=== PATIENT | male | born 1970 | race Two or more races ===

== ENCOUNTER 2018-05-17 16:37 | Emergency (ER) | payer SELFPAY ==
[~2018-05-17] VITALS: Ht 172.7 cm; Wt 79.4 kg
--- NOTE | 2018-05-17 16:37 | NUR ---
BIB [facility], PT BROUGHT DIRECTLY TO ROOM 2A.
[2018-05-17] MEDS ORDERED: NITROGLYCERIN 0.4 MG/TAB BOTTLE SL ONE (16:42)
[2018-05-17] MEDS ORDERED: ASPIRIN 81 MG TAB.CHEW ONE ×2 (16:43→16:59)
--- NOTE | 2018-05-17 16:43 | NUR ---
STAT EKG DONE, ER PHYSICIAN ATTENDING TO A SANCHO HELM IN ANOTHER DEPARTMENT IN THE HOSPITAL AT THIS TIME.
--- NOTE | 2018-05-17 16:55 | NUR ---
Called [facility] for STEMI transfer as requested by . Spoke with Tenisha, EKG and facesheet faxed to [phone] as requested.
[2018-05-17] MEDS ORDERED: IV NORMAL SALINE 1000 ML BAG IV ONE (17:00)
[2018-05-17] MEDS ORDERED: MORPHINE SULFATE 2 MG/1 ML DISP.SYRIN IV ONE (17:00)
[2018-05-17] MEDS ORDERED: ONDANSETRON 4 MG/2 ML VIAL IV ONE (17:00)
[2018-05-17] MEDS ORDERED: ASPIRIN 325 MG TABLET PO ONE (17:00)
[2018-05-17] MEDS ORDERED: HEPARIN SODIUM,PORCINE 5,000 UNITS/ML VIAL IV ONE (17:00)
--- NOTE | 2018-05-17 17:00 | NUR ---
spoke with (barrel charrer information delivery analyst at [facility]) via telephone and pt has been accepted.
[2018-05-17] MEDS ORDERED: MORPHINE SULFATE 2 MG/1 ML DISP.SYRIN ONE (17:05)
[2018-05-17] MEDS ORDERED: ONDANSETRON 4 MG/2 ML VIAL ONE (17:05)
[2018-05-17] MEDS ORDERED: HEPARIN SODIUM,PORCINE 5,000 UNITS/ML VIAL ONE (17:05)
[2018-05-17 17:09] LABS: BASOPHILS # (AUTO) 0.1 K/uL (0.0-8.0); BASOPHILS % (AUTO) 0.6 % (0.0-2.0); EOSINOPHILS # (AUTO) 0.2 K/uL (0.0-0.7); EOSINOPHILS % (AUTO) 1.4 % (0.0-7.0); HEMATOCRIT 41.4 % (36.7-47.1); HEMOGLOBIN 13.7 g/dL (12.5-16.3); LYMPHOCYTES # (AUTO) 5.2 K/uL (20.0-40.0); LYMPHOCYTES % (AUTO) 35.8 % (20.5-51.5); MEAN CORPUSCULAR HEMOGLOBIN 30.4 uug (23.8-33.4); MEAN CORPUSCULAR HGB CONC 33 g/dL (32.5-36.3); MONOCYTES # (AUTO) 0.8 K/uL (2.0-10.0); MONOCYTES % (AUTO) 5.5 % (0.0-11.0); NEUTROPHILS # (AUTO) 8.2 K/uL (1.8-8.9); NEUTROPHILS % (AUTO) 56.7 % (38.5-71.5); PLATELET COUNT (AUTO) 265 K/uL (152-348); WHITE BLOOD COUNT (AUTO) 14.5 K/uL (3.6-10.2)
--- NOTE | 2018-05-17 17:10 | NUR ---
I spoke with Tenisha at [facility] who stated they have accepted the pt, the pt may be transfered to the ER.
--- NOTE | 2018-05-17 17:11 | NUR ---
Pt left ER with [facility].
[2018-05-17 17:18] LABS: CREATININE 1.4 mg/dL (0.6-1.3); POTASSIUM 3.4 mmol/L (3.5-5.1)
[2018-05-17 17:24] LABS: BILIRUBIN,DIRECT 0.3 mg/dL (0.0-0.2); BILIRUBIN,TOTAL 0.7 mg/dL (0.2-1.0); TOTAL PROTEIN, SERUM 6.2 g/dL (6.4-8.2)
== END 2018-05-17 17:24 | disposition short-term general hospital (02) ==
LOC: ER 16:38
DX: I21.3 ST elevation (STEMI) myocardial infarction of unspecified site (principal); E78.5 Hyperlipidemia, unspecified
CPT/HCPCS: 36415; 80048; 80076; 84484; 85025; 85730; 93005; 96374; 96375; 99291; J1644; J2405; 70030-TC; A4663; J2270; J7030